=== PATIENT | female | born 1985 | race Two or more races ===

== ENCOUNTER 2024-05-02 10:14 | Inpatient (IN) | payer OTHER ==
[~2024-05-02] VITALS: Ht 172.7 cm; Wt 78.0 kg
[2024-05-02 10:28] VITALS: BP 115/72
[2024-05-02 10:29] VITALS: BP 115/72
[2024-05-02] MEDS ORDERED: RINGERS SOLUTION,LACTATED 1,000 ML IV SCH (11:15)
[2024-05-02] MEDS ORDERED: PRENATAL TABLE1 EAC1 PO (11:19)
[2024-05-02] MEDS ORDERED: PROZAC10 M1 PO (11:22)
[2024-05-02] MEDS ORDERED: CHILDREN'S ASPI81 MG PO (11:22)
[2024-05-02] MEDS ORDERED: PEPCID AC20 MG PO (11:23)
[2024-05-02] MEDS ORDERED: UNISOM25 MG PO (11:24)
[2024-05-02 12:16] LABS: URINE APPEARANCE Clear; URINE BILIRRUBIN Negative (NEGATIVE); URINE BLOOD Negative; URINE COLOR Yellow; URINE GLUCOSE Negative (NEGATIVE); URINE KETONE Negative (NEGATIVE); URINE LEUKOCYTE Negative; URINE NITRATE Negative; URINE PROTEIN Negative (NEGATIVE); URINE UROBILINOGEN 0.2 E.U./dl
[2024-05-02 12:19] LABS: HEMATOCRIT 31.9 % (36.0-45.00); MEAN CELL VOLUME 86.7 fL (80.00-100.00); MEAN CORPUSCULAR HGB CONC 34.3 g/dl (32.0-36.0); PLATELET COUNT 282 K/uL (150-450); RED BLOOD COUNT 3.68 M/uL (4.00-6.00); RED CELL DISTRIBUTION WIDTH 13.1 % (11.5-14.5)
[2024-05-02 12:20] LABS: URINE BACTERIA 71.7 uL (0.0-1933); URINE EPITHELIAL CELLS 10.3 uL (0.0-38.8); URINE RBC 2.5 uL (0.0-20.8)
[2024-05-02 12:21] LABS: URINE WBC 1.2 uL (0.0-23.2)
[2024-05-02 12:23] LABS: HEMOGLOBIN 10.9 g/dL (12.0-15.00); MEAN CORPUSCULAR HEMOGLOBIN 29.6 pg (27.00-32.0)
[2024-05-02 12:28] LABS: PARTIAL THROMBOPLASTIN TIME 26.4 SECONDS (22.0-34.0); PROTHROMBIN TIME 10.9 SECONDS (9.0-11.5)
[2024-05-02 12:43] LABS: ALBUMIN 3.2 gm/dL (3.4-5.0); BILIRUBIN TOTAL 0.41 mg/dL (0.3-1.2); CALCIUM 9.2 mg/dL (8.5-10.1); CREATININE SERUM 0.55 mg/dL (0.55-1.02); GFR 122.42; GLOBULINA 3.8 G/DL (2.4-3.5); POTASSIUM 4.22 mEq/L (3.5-5.1)
[2024-05-02] MEDS ORDERED: MAGNESIUM SULFATE IN WATER 500 ML IV SCH (13:15)
[2024-05-02] MEDS ORDERED: CEFAZOLIN SODIUM 1,000 MG VIAL IV SCH (13:15)
[2024-05-02 15:21] VITALS: BP 98/63
[2024-05-02] MEDS ORDERED: FAMOTIDINE/PF 20 MG/2 ML VIAL IV PUSH SCH (17:00)
[2024-05-02 19:30] VITALS: BP 105/69
[2024-05-03] VITALS (7 sets, daily range): BP systolic 94–103; BP diastolic 56–67
[2024-05-03] MEDS ORDERED: DIPHENHYDRAMINE HCL 50 MG/ML VIAL 1ML IV NR (12:15)
[2024-05-03] MEDS ORDERED: POVIDONE-IODINE 118 ML BOTT TOP ONE (16:30)
[2024-05-03] MEDS ORDERED: DEXTROSE 5 % IN WATER 100 ML IV SCH (17:10)
[2024-05-03] MEDS ORDERED: MAGNESIUM SULFATE IN WATER 500 ML IV SCH (17:15)
[2024-05-03] MEDS ORDERED: MORPHINE SULFATE 4 MG/ML CARTRIDGE IV PRN (17:30)
[2024-05-04 03:48] VITALS: BP 100/60
[2024-05-04 06:03] VITALS: BP 98/56; O2SAT 97
[2024-05-04] MEDS ORDERED: POLYETHYLENE GLYCOL 3350 17 GM BLIST.PACK PO SCH (09:00)
[2024-05-04] MEDS ORDERED: ENOXAPARIN SODIUM 40 MG/0.4 ML SYRINGE SUBCUTANEO SCH (09:00)
[2024-05-04 11:24] VITALS: BP 100/58; O2SAT 98
[2024-05-04 13:50] VITALS: BP 105/68
[2024-05-04 16:47] VITALS: BP 94/57
[2024-05-05 01:52] VITALS: BP 99/63
[2024-05-05 09:00] VITALS: BP 100/64
[2024-05-05 17:29] VITALS: BP 105/66
[2024-05-05 19:51] LABS: URINE APPEARANCE Clear; URINE BILIRRUBIN Negative (NEGATIVE); URINE BLOOD Negative; URINE COLOR Yellow; URINE GLUCOSE Negative (NEGATIVE); URINE KETONE Negative (NEGATIVE); URINE LEUKOCYTE Negative; URINE NITRATE Negative; URINE PROTEIN Negative (NEGATIVE); URINE UROBILINOGEN 0.2 E.U./dl
[2024-05-05 19:55] LABS: URINE RBC 5.4 uL (0.0-20.8)
[2024-05-05 20:01] LABS: URINE BACTERIA 0 uL (0.0-1933); URINE EPITHELIAL CELLS 0.4 uL (0.0-38.8); URINE WBC 0.9 uL (0.0-23.2)
[2024-05-06 00:12] VITALS: BP 106/71
[2024-05-06 14:11] VITALS: BP 100/66
[2024-05-06 16:00] VITALS: BP 100/62
[2024-05-06 23:56] VITALS: BP 96/60
[2024-05-07 05:00] VITALS: BP 98/64
[2024-05-07 08:19] VITALS: BP 98/61
[2024-05-07] MEDS ORDERED: DIPHENHYDRAMINE HCL 25 MG CAPSULE PO SCH (12:00)
[2024-05-07 16:33] VITALS: BP 110/74
[2024-05-07 21:26] VITALS: BP 100/52
[2024-05-08 00:48] VITALS: BP 108/71
[2024-05-08 07:39] VITALS: BP 93/60
[2024-05-08 15:48] VITALS: BP 103/65
[2024-05-08] MEDS ORDERED: BETAMETHASONE ACETATE,SOD PHOS 30 MG/5 ML ML IM SCH (17:45)
[2024-05-09 00:46] VITALS: BP 100/60
[2024-05-09 07:53] VITALS: BP 94/60
[2024-05-09 15:45] VITALS: BP 107/69
[2024-05-09] MEDS ORDERED: POLYETHYLENE GLYCOL 3350 17 GM BLIST.PACK PO SCH (18:45)
[2024-05-09 20:58] VITALS: BP 93/55
[2024-05-10 01:02] VITALS: BP 104/63
[2024-05-10 08:11] VITALS: BP 100/56
== END 2024-05-10 11:15 | disposition home or self-care (01) | DRG 819 ==
LOC: LDR 10:14 → OB/GYN 05-04 10:09
PROVIDERS: Obstetrics & Gynecology Gynecology; ADMIT Obstetrics & Gynecology; ATTEND Obstetrics & Gynecology
PROC: 4A1HXCZ Monitoring of Products of Conception, Cardiac Rate, External Approach (ICD-10-PCS; 2024-05-02)
PROC: 0UVC7ZZ Restriction of Cervix, Via Natural or Artificial Opening (ICD-10-PCS; principal; 2024-05-03 17:15)
PROC: BY4CZZZ Ultrasonography of Second Trimester, Single Fetus (ICD-10-PCS; 2024-05-08)
PROC: BU4CZZZ Ultrasonography of Uterus and Ovaries (ICD-10-PCS; 2024-05-08)
DX: O34.32 Maternal care for cervical incompetence, second trimester (principal); O26.842 Uterine size-date discrepancy, second trimester; O26.872 Cervical shortening, second trimester; Z3A.23 23 weeks gestation of pregnancy; Z20.822 Contact with and (suspected) exposure to COVID-19

== ENCOUNTER 2024-06-14 14:21 | Outpatient (CLI) | payer OTHER ==
[~2024-06-14 14:21] MED LIST: CHILDREN'S ASPI81 MG PO; PEPCID AC20 MG PO; PRENATAL TABLE1 EAC1 PO; PROZAC10 M1 PO; UNISOM25 MG PO
== END 2024-06-14 15:01 | disposition home or self-care (01) ==
LOC: NST 14:21
PROVIDERS: ATTEND Obstetrics & Gynecology Maternal & Fetal Medicine
DX: Z34.83 Encounter for supervision of other normal pregnancy, third trimester (principal)

== ENCOUNTER 2024-08-10 15:47 | Outpatient (CLI) | payer OTHER | END 2024-08-10 16:46 | disposition home or self-care (01) | LOC: NST 15:47 | PROVIDERS: ATTEND Obstetrics & Gynecology | DX: Z3A.37 37 weeks gestation of pregnancy (principal) ==

== ENCOUNTER 2024-08-22 16:57 | Inpatient (IN) | payer OTHER ==
[~2024-08-22] VITALS: Ht 172.7 cm; Wt 63.0 kg
[2024-08-22 17:38] VITALS: BP 116/76
[2024-08-22 18:36] LABS: HEMATOCRIT 31.9 % (36.0-45.00); MEAN CORPUSCULAR HEMOGLOBIN 26.9 pg (27.00-32.0); MEAN CORPUSCULAR HGB CONC 34.4 g/dl (32.0-36.0); PLATELET COUNT 301 K/uL (150-450); RED BLOOD COUNT 4.09 M/uL (4.00-6.00); RED CELL DISTRIBUTION WIDTH 15.7 % (11.5-14.5)
[2024-08-22 18:55] LABS: INR 0.94; PARTIAL THROMBOPLASTIN TIME 25.8 SECONDS (22.0-34.0); PROTHROMBIN TIME 10.3 SECONDS (9.0-11.5)
[2024-08-22 19:04] LABS: ALBUMIN 2.7 gm/dL (3.4-5.0); BILIRUBIN TOTAL 0.41 mg/dL (0.3-1.2); CALCIUM 9.3 mg/dL (8.5-10.1); CREATININE SERUM 0.64 mg/dL (0.55-1.02); GFR 102.78; GLOBULINA 3.8 G/DL (2.4-3.5); POTASSIUM 3.88 mEq/L (3.5-5.1); TOTAL PROTEIN 6.5 gm/dL (6.4-8.2)
[2024-08-22 20:43] VITALS: BP 116/73
[2024-08-22] MEDS ORDERED: FAMOTIDINE/PF 20 MG/2 ML VIAL IV PUSH SCH (21:00)
[2024-08-22 23:51] VITALS: BP 119/71
[2024-08-23] VITALS (10 sets, daily range): BP systolic 95–130; BP diastolic 58–84
[2024-08-23] MEDS ORDERED: OXYTOCIN 20 UNITS/500ML RL PIGGYBAG IV ONE (07:19)
[2024-08-23] MEDS ORDERED: OXYTOCIN 500 ML IV ONE (08:00)
[2024-08-23] MEDS ORDERED: MORPHINE SULFATE 4 MG/ML CARTRIDGE IV PRN (08:45)
[2024-08-23] MEDS ORDERED: CHLORHEXIDINE GLUCONATE 120 ML BOTTLE TOP ONE (16:32)
[2024-08-23] MEDS ORDERED: LIDOCAINE HCL 1% 10ML VIAL ONE (16:32)
[2024-08-23] MEDS ORDERED: OXYTOCIN 20 UNITS/1000ML RL PIGGYBAG IV ONE (16:32)
[2024-08-23] MEDS ORDERED: ERYTHROMYCIN BASE OPHT 1GM EACH TUBE OP ONE (16:32)
[2024-08-23] MEDS ORDERED: CHLORHEXIDINE GLUCONATE 120 ML BOTTLE TP SCH (21:30)
[2024-08-23] MEDS ORDERED: IBUprofen 400 MG TABLET PO PRN (21:30)
[2024-08-23] MEDS ORDERED: OXYTOCIN 1,000 ML IV SCH (21:30)
[2024-08-23] MEDS ORDERED: FLUOXETINE HCL 10 MG CAPSULE PO SCH (23:00)
[2024-08-24 00:45] VITALS: BP 100/55
[2024-08-24 07:00] VITALS: BP 105/67
[2024-08-24 07:39] LABS: MEAN CELL VOLUME 78.5 fL (80.00-100.00); MEAN CORPUSCULAR HGB CONC 33.7 g/dl (32.0-36.0); PLATELET COUNT 188 K/uL (150-450); RED BLOOD COUNT 2.81 M/uL (4.00-6.00); RED CELL DISTRIBUTION WIDTH 15.3 % (11.5-14.5)
[2024-08-24 07:55] LABS: HEMATOCRIT 22.1 % (36.0-45.00); MEAN CORPUSCULAR HEMOGLOBIN 26.3 pg (27.00-32.0)
[2024-08-24 07:56] LABS: HEMOGLOBIN 7.4 g/dL (12.0-15.00)
[2024-08-24] MEDS ORDERED: OxyCODONE HCL 5 MG TABLET (ROXICODONE) PO SCH (08:00)
[2024-08-24] MEDS ORDERED: DOCUSATE SODIUM 100MG CAP PO SCH (09:00)
[2024-08-24] MEDS ORDERED: KETOROLAC TROMETHAMINE 10 MG TABLET PO SCH (12:00)
[2024-08-24 15:00] VITALS: BP 100/63
[2024-08-25 03:33] VITALS: BP 100/62
[2024-08-25 05:38] VITALS: BP 111/73
[2024-08-25 07:53] LABS: HEMATOCRIT 26.9 % (36.0-45.00); MEAN CELL VOLUME 78.9 fL (80.00-100.00); MEAN CORPUSCULAR HGB CONC 35.1 g/dl (32.0-36.0); PLATELET COUNT 201 K/uL (150-450); RED CELL DISTRIBUTION WIDTH 15.2 % (11.5-14.5)
[2024-08-25] MEDS ORDERED: KETO10TA2 PO (08:00)
[2024-08-25 08:08] LABS: HEMOGLOBIN 9.4 g/dL (12.0-15.00); MEAN CORPUSCULAR HEMOGLOBIN 27.6 pg (27.00-32.0)
[2024-08-25 08:20] VITALS: BP 105/61
== END 2024-08-25 15:00 | disposition home or self-care (01) | DRG 807 ==
LOC: OB/GYN → LDR 16:57 → OB/GYN 08-23 10:13
PROVIDERS: ADMIT Obstetrics & Gynecology; ATTEND Obstetrics & Gynecology
PROC: 4A1HXCZ Monitoring of Products of Conception, Cardiac Rate, External Approach (ICD-10-PCS; 2024-08-22)
PROC: 10E0XZZ Delivery of Products of Conception, External Approach (ICD-10-PCS; principal; 2024-08-23)
PROC: 0KQM0ZZ Repair Perineum Muscle, Open Approach (ICD-10-PCS; 2024-08-23)
DX: O70.1 Second degree perineal laceration during delivery (principal); Z37.0 Single live birth; Z3A.39 39 weeks gestation of pregnancy